=== PATIENT | female | born 1985 | race Caucasian/White ===

== ENCOUNTER → 2019-12-20 | Outpatient (CLI) | payer OTHER ==
[2019-12-20 12:58] LABS: HCG,Quantitative Serum <2.4 mIU/mL; T4, Free (Free Thyroxine) 1.23 ng/dL (0.78-2.19)
== END | disposition home or self-care (01) ==
LOC: LABWHC1 10:50
PROVIDERS: ATTEND Internal Medicine
DX: R53.83 Other fatigue (principal); R11.0 Nausea
CPT/HCPCS: 36415; 84439; 84443; 84702

== ENCOUNTER → 2020-01-23 | Outpatient (CLI) | payer OTHER ==
--- NOTE | 2020-01-23 11:02 | US ---
EXAMINATION TYPE: US abdomen complete DATE OF EXAM: 01/23/2020 COMPARISON: None CLINICAL HISTORY: 34-year-old female R10 Abdominal Pain. Intermittent nausea x couple months, mostly in the mornings, occasional vomiting, history of cholecystectomy. TECHNIQUE: Multiple sonographic images of the abdomen are obtained. FINDINGS: EXAM MEASUREMENTS: Liver Length: 14.5 cm Gallbladder: surgically absent CBD: 0.4 cm Spleen: 11.6 cm Right Kidney: 9.2 x 4.6 x 4.6 cm Left Kidney: 10.1 x 5.3 x 5.1 cm Pancreas: visualized pancreatic neck and body show no gross abnormal. Suboptimal visualization of th e pancreatic head and tail due to shadowing from bowel gas. Liver: wnl Gallbladder: surgically absent Evidence for sonographic Oconnor's sign: no CBD: visualized portions wnl, limited by overlying bowel gas Spleen: wnl Right Kidney: wnl Left Kidney: wnl Upper IVC: wnl Abd Aorta: wnl IMPRESSION: Status post cholecystectomy. No biliary ductal dilatation.
== END | disposition home or self-care (01) ==
LOC: RADUSWWP 10:18
PROVIDERS: ATTEND Internal Medicine
DX: R10.84 Generalized abdominal pain (principal); Z90.49 Acquired absence of other specified parts of digestive tract
CPT/HCPCS: 76700

== ENCOUNTER 2020-02-10 08:18 | Day surgery (SDC) | payer OTHER ==
[2020-02-08 12:13] VITALS: BMI 37.2
[~2020-02-10 08:18] MED LIST: LACTATED RINGERS 1,000 ML IV SCH
[2020-02-10 08:50] VITALS: RESP 16; TEMP 97
[2020-02-10] MEDS ORDERED: LIDOCAINE 1% (10MG/ML) FOR IV START INTRADERMA ONE (08:55)
[2020-02-10] MEDS ORDERED: ONDANSETRON 4 MG/2 ML VIAL IVP ONE (09:01)
[2020-02-10] MEDS ORDERED: PROPOFOL 10 MG/ML 20 ML VIAL IV ONE (09:43)
[2020-02-10] MEDS ORDERED: LIDOCAINE 1% INJ 10MG/ML (20 ML MDV) ONE (09:43)
--- NOTE | 2020-02-10 10:01 | P.PCN ---
Date of Procedure: 02/10/20 Procedure(s) Performed: BRIEF HISTORY: Patient is a 34 to-year-old, pleasant, white female scheduled for an upper endoscopy as a part of evaluation of epigastric pain and persistent nausea for the last few months duration.. PROCEDURE PERFORMED: Esophagogastroduodenoscopy. With biopsy PREOPERATIVE DIAGNOSIS: Epigastric pain/nausea. IV sedation per anesthesia. PROCEDURE: After informed consent was obtained, the patient was brought into the endoscopy unit. IV sedation was administered by Anesthesia under continuous monitoring. Initially the Olympus GIF-140 video endoscope was inserted into the mouth. Esophagus intubated without any difficulty. It was gradually advanced into the stomach and duodenum and carefully examined. The bulb and the second part of the duodenum appeared normal. Biopsies were done from the duodenum to rule out celiac disease. The scope at this time was withdrawn to the stomach, adequately insufflated with air, and upon careful examination, mucosa of the antrum, had scattered erosions and biopsies were done from this area. The body, cardia and the fundus appeared normal. The scope was then withdrawn into the esophagus. The GE junction was located at 39 cm from the incisors. There was a fissure erythema the GE junction with superficial erosions consistent with LA grade B reflux esophagitis. and the patient tolerated the procedure well. IMPRESSION: 1. Antral erosive gastritis. 2. LA grade B reflux esophagitis RECOMMENDATIONS: The findings of this examination were discussed with the patient as well as her family. She was advised to follow with the biopsy results. In the meantime continue with omeprazole 20 mg daily and follow antireflux measures.
[2020-02-10 10:22] VITALS: BP 128/78; PULSE 55
== END 2020-02-10 11:05 | disposition home or self-care (01) ==
LOC: ORWHC2ENDO 08:18
PROVIDERS: ATTEND Internal Medicine Gastroenterology
DX: K29.50 Unspecified chronic gastritis without bleeding (principal); K21.0 Gastro-esophageal reflux disease with esophagitis; K22.10 Ulcer of esophagus without bleeding; B96.81 Helicobacter pylori [H. pylori] as the cause of diseases classified elsewhere; E66.01 Morbid (severe) obesity due to excess calories; F41.9 Anxiety disorder, unspecified; F32.9 Major depressive disorder, single episode, unspecified; Z68.37 Body mass index [BMI] 37.0-37.9, adult; Z90.49 Acquired absence of other specified parts of digestive tract; Z90.89 Acquired absence of other organs; Z79.899 Other long term (current) drug therapy; Z87.891 Personal history of nicotine dependence
CPT/HCPCS: 81025; 43239; J2405; J2001; J2704; 88305; 88342

== ENCOUNTER 2020-11-12 10:32 | Emergency (ER) | payer OTHER ==
[2020-11-12 10:40] VITALS: BP 149/89; PULSE 72; RESP 20; TEMP 98.9
[2020-11-12] MEDS ORDERED: guaiFENesin-DM 600/30MG 1 EACH TAB.ER.12H PO STA (11:12)
--- NOTE | 2020-11-12 12:25 | XR ---
EXAMINATION TYPE: XR chest 1V DATE OF EXAM: 11/12/2020 COMPARISON: NONE HISTORY: Chest pain TECHNIQUE: Single frontal view of the chest is obtained. FINDINGS: Increased density right medial lung base may reflect developing infiltrate. The remainder of the lung s are clear. The cardiac silhouette size is within normal limits. The osseous structures are intact. IMPRESSION: 1. Increased density right medial lung base may reflect developing infiltrate. The remainder of the lungs are clear.
[2020-11-12] MEDS ORDERED: AZITHROMYCIN 500 MG TAB PO STA (12:45)
--- NOTE | 2020-11-12 12:53 | ED ---
URI HPI - General Chief Complaint: Upper Respiratory Infection Stated Complaint: Covid exposure, wants test Time Seen by Provider: 11/12/20 10:42 Source: patient Mode of arrival: ambulatory Limitations: no limitations - History of Present Illness Initial Comments: 35-year-old female patient presents to the emergency department today for evaluation of nasal congestion, cough, shortness of breath. She states symptoms started 2 days ago. States that her son was quarantined at home due to exposure at school but never developed symptoms. She states that today's of her stay with a cough. Denies any sputum production. Denies any chest pain. Denies any fever or chills. Does admit to smoking cigarettes. Patient denies any recent rash, abdominal pain, nausea, vomiting, diarrhea, constipation, back pain, numbness, tingling, dizziness, weakness, hematuria, dysuria, urinary urgency, urinary frequency, headache, visual changes, or any other complaints. Denies chance of , states tubal ligation in 2012. - Related Data Previous Rx's Medication Instructions Recorded Azithromycin [Zithromax Z-pack (6 0 mg PO DIRECTED #6 tab 11/12/20 tabs)] guaiFENesin-DM 600/30MG [Mucinex 2 each PO Q12HR PRN #20 tab.er.12h 11/12/20 Dm] Allergies Allergy/AdvReac Type Severity Reaction Status Date / Time No Known Allergies Allergy Verified 11/12/20 10:40 Review of Systems ROS Statement: Those systems with pertinent positive or pertinent negative responses have been documented in the HPI. ROS Other: All systems not noted in ROS Statement are negative. Past Medical History Past Medical History: No Reported History Additional Past Medical History / Comment(s): NAUSEA History of Any Multi-Drug Resistant Organisms: None Reported Past Surgical History: Adenoidectomy, Section, Cholecystectomy, Ear Surgery, Tonsillectomy, Tubal Ligation Additional Past Surgical History / Comment(s): tubes in bilat ears. C-SEC X 3 Past Anesthesia/Blood Transfusion Reactions: No Reported Reaction Past Psychological History: Anxiety, Depression Smoking Status: Never smoker Past Alcohol Use History: None Reported Past Drug Use History: Marijuana - Past Family History Mother Family Medical History: No Reported History General Exam Limitations: no limitations General appearance: alert, in no apparent distress, other (this is a well- developed, well-nourished adult female patient in no acute distress.) Eye exam: Present: normal appearance, PERRL, EOMI. Absent: scleral icterus, conjunctival injection, periorbital swelling ENT exam: Present: normal exam, normal oropharynx, mucous membranes moist Respiratory exam: Present: normal lung sounds bilaterally. Absent: respiratory distress, wheezes, rales, rhonchi, stridor Cardiovascular Exam: Present: regular rate, normal rhythm, normal heart sounds. Absent: systolic murmur, diastolic murmur, rubs, gallop, clicks GI/Abdominal exam: Present: soft, normal bowel sounds. Absent: distended, tenderness, guarding, rebound, rigid Neurological exam: Present: alert, oriented X3, CN II-XII intact Psychiatric exam: Present: normal affect, normal mood Skin exam: Present: warm, dry, intact, normal color. Absent: rash Course Vital Signs 11/12/20 10:38 Temperature 98.9 F Pulse Rate 72 Respiratory 20 Rate Blood Pressure 149/89 O2 Sat by Pulse 99 Oximetry Medical Decision Making - Medical Decision Making 35-year-old female patient presents to the emergency department today for evaluation of upper respiratory symptoms and cough. Physical examination did reveal clear equal lung sounds. Vital signs are unremarkable. She tested negative for COVID-19. Chest x-ray did show developing right middle lobe infiltrate. We'll start patient on azithromycin. She'll be given a prescription for Mucinex. I did discuss the possibility of a false negative on her COVID test and told her to take precautions. She'll be discharged to follow up with her primary care physician for recheck in 1-2 days. Return parameters were discussed in detail. She verbalizes understanding and agrees with this plan. Case discussed with my attending Dr. Harkins. - Lab Data Lab Results 11/12/20 Range/Units 11:03 Coronavirus (PCR) Not Detected (Not Detectd) - Radiology Data Radiology results: report reviewed, image reviewed One view x-ray of the chest is obtained. Report was reviewed in its entirety. Impression by Dr. Ureña shows increased density right medial lung base may reflect developing infiltrate. The remainder of the lungs are clear. Disposition Clinical Impression: Right middle lobe pneumonia Disposition: HOME SELF-CARE Condition: Good Instructions (If sedation given, give patient instructions): Upper Respiratory Infection (ED), Pneumonia (ED) Additional Instructions: Complete antibiotic prescription in full. Take medications as directed. Follow-up through primary care physician for recheck in 1-2 days. Return to the emergency department for any new, worsening, or concerning symptoms. Prescriptions: guaiFENesin-DM 600/30MG [Mucinex Dm] 2 each PO Q12HR PRN #20 tab.er.12h PRN Reason: Cough Azithromycin [Zithromax Z-pack (6 tabs)] 0 mg PO DIRECTED #6 tab Is patient prescribed a controlled substance at d/c from ED?: No Referrals: La Yarbrough MD [Primary Care Provider] - 1-2 days Time of Disposition: 12:53
== END 2020-11-12 13:07 | disposition home or self-care (01) ==
LOC: EC 10:32
DX: J18.1 Lobar pneumonia, unspecified organism (principal); E11.9 Type 2 diabetes mellitus without complications; Z20.822 Contact with and (suspected) exposure to COVID-19
CPT/HCPCS: 71045; 87635; 99283

== ENCOUNTER → 2022-05-22 | Outpatient (CLI) | payer OTHER | END | disposition home or self-care (01) | LOC: LABWHC1 10:26 | PROVIDERS: ATTEND Internal Medicine Interventional Cardiology | DX: Z00.01 Encounter for general adult medical examination with abnormal findings (principal) | CPT/HCPCS: 36415; 84443 ==

== ENCOUNTER 2023-08-28 19:41 | Emergency (ER) | payer OTHER ==
--- NOTE | 2023-08-28 21:10 | ED ---
General Adult HPI - General Source: patient, RN notes reviewed <Jodi Lan - Last Filed: 08/28/23 21:07> - History of Present Illness -: unknown Consistency: constant Improves with: none Worsens with: none Associated Symptoms: denies other symptoms <Dragan Scanlon - Last Filed: 08/29/23 05:43> <Dragan Thompson - Last Filed: 08/29/23 11:30> - General Stated complaint: Petitioned Time Seen by Provider: 08/28/23 21:07 - History of Present Illness Initial comments: 38 year old female presents to the emergency department for psychiatric evaluation. Patient states that she was in an argument with her roommate when she states that she said "I would rather be than deal with this." She states that because of this PD petitioned her to be evaluated. She denies feeling suicidal. She does have a history of depression. (Jodi Lan) This is a 38-year-old female presenting today with acute life stress resulting in suicidal statements. Patient's been petition by the police department for psychiatric evaluation. Patient has no drug or alcohol use today (Dragan Scanlon) - Related Data Previous Rx's Medication Instructions Recorded Azithromycin [Zithromax Z-pack (6 0 mg PO DIRECTED #6 tab 11/12/20 tabs)] guaiFENesin-DM 600/30MG [Mucinex 2 each PO Q12HR PRN #20 tab.er.12h 11/12/20 Dm] Allergies Allergy/AdvReac Type Severity Reaction Status Date / Time No Known Allergies Allergy Verified 08/28/23 21:45 Review of Systems ROS Other: All systems not noted in ROS Statement are negative. <Jodi Lan - Last Filed: 08/28/23 21:07> ROS Other: All systems not noted in ROS Statement are negative. <Dragan Scanlon - Last Filed: 08/29/23 05:43> ROS Other: All systems not noted in ROS Statement are negative. <Dragan Thompson - Last Filed: 08/29/23 11:30> ROS Statement: Those systems with pertinent positive or pertinent negative responses have been documented in the HPI. Past Medical History Past Medical History: No Reported History Additional Past Medical History / Comment(s): NAUSEA History of Any Multi-Drug Resistant Organisms: None Reported Past Surgical History: Adenoidectomy, Section, Cholecystectomy, Ear Surgery, Tonsillectomy, Tubal Ligation Additional Past Surgical History / Comment(s): tubes in bilat ears. C-SEC X 3 Past Anesthesia/Blood Transfusion Reactions: No Reported Reaction Past Psychological History: Anxiety, Depression Smoking Status: Never smoker Past Alcohol Use History: None Reported Past Drug Use History: Marijuana - Past Family History Mother Family Medical History: No Reported History <RikyJodi - Last Filed: 08/28/23 21:07> General Exam <JoseIvan osbornesey - Last Filed: 08/28/23 21:07> General appearance: alert, in no apparent distress Head exam: Present: atraumatic, normocephalic, normal inspection Eye exam: Present: normal appearance, PERRL, EOMI. Absent: scleral icterus, conjunctival injection, periorbital swelling ENT exam: Present: normal exam, mucous membranes moist Neck exam: Present: normal inspection. Absent: tenderness, meningismus, lymphadenopathy Respiratory exam: Present: normal lung sounds bilaterally. Absent: respiratory distress, wheezes, rales, rhonchi, stridor Cardiovascular Exam: Present: regular rate, normal rhythm, normal heart sounds. Absent: systolic murmur, diastolic murmur, rubs, gallop, clicks GI/Abdominal exam: Present: soft, normal bowel sounds. Absent: distended, tenderness, guarding, rebound, rigid Extremities exam: Present: normal inspection, full ROM, normal capillary refill. Absent: tenderness, pedal edema, joint swelling, calf tenderness Back exam: Present: normal inspection Neurological exam: Present: alert, oriented X3, CN II-XII intact Psychiatric exam: Present: normal affect, normal mood Skin exam: Present: warm, dry, intact, normal color. Absent: rash <Dragan Scanlon - Last Filed: 08/29/23 05:43> - General Exam Comments Initial Comments: Visual Physical Exam Vital signs reviewed General: Well-appearing, nontoxic, no acute distress. Head: Normocephalic, atraumatic Eyes: PERRLA, EOMI ENT: Airway patent Chest: Nonlabored breathing Skin: No visual rash, normal skin tone Neuro: Alert and oriented 3 Musculoskeletal: No gross abnormalities (Jodi Lan) Course <Dragan Scanlon - Last Filed: 08/29/23 05:43> Vital Signs 08/28/23 08/29/23 21:46 11:00 Temperature 98.2 F 98.0 F Pulse Rate 77 72 Respiratory 18 18 Rate Blood Pressure 145/78 142/80 O2 Sat by Pulse 99 97 Oximetry - Reevaluation(s) Reevaluation #1: 08/29/23 Medical record is reviewed Medically clear for psychiatric evaluation (Dragan Scanlon) Medical Decision Making <Jodi Lan - Last Filed: 08/28/23 21:07> <Dragan Thompson - Last Filed: 08/29/23 11:30> - Medical Decision Making Quick note preformed by Jodi Lan PA-C (Jodi Lan) Was patient admitted / discharged? Hospital course, mention meds given and route, prescriptions, significant lab abnormalities, going to OR and other pertinent info. @ -Patient was signed out to me by Dr. Scanlon at 7 AM Patient was evaluated by EPS EPS spoke with the psychiatrist and it was determined that the patient be discharged home safely. Patient was given a safety plan and discharged home. Undiagnosed new problem with uncertain prognosis? @ -No Drug Therapy requiring intensive monitoring for toxicity (Heparin, Nitro, Insulin, Cardizem)? @ -No Were any procedures done? @ -No Diagnosis/symptom? @ -Depression Acute, or Chronic, or Acute on Chronic? @ -Acute Uncomplicated (without systemic symptoms) or Complicated (systemic symptoms)? @ -Complicated Side effects of treatment? @ -No Exacerbation, Progression, or Severe Exacerbation? @ -No Poses a threat to life or bodily function? How? (Chest pain, [place], [place], pneumonia, PE, COPD, DKA, ARF, appy, cholecystitis, CVA, Diverticulitis, Homicidal, Suicidal, threat to staff... and all critical care pts) @ -No (Dragan Thompson) - Lab Data Lab Results 08/29/23 Range/Units 00:31 Urine Opiates Screen Not Detected (NotDetected) Ur Oxycodone Screen Not Detected (NotDetected) Urine Methadone Screen Not Detected (NotDetected) Ur Barbiturates Screen Not Detected (NotDetected) U Tricyclic Antidepress Not Detected (NotDetected) Ur Phencyclidine Scrn Not Detected (NotDetected) Ur Amphetamines Screen Not Detected (NotDetected) U Methamphetamines Scrn Not Detected (NotDetected) U Benzodiazepines Scrn Not Detected (NotDetected) Urine Cocaine Screen Not Detected (NotDetected) U Marijuana (THC) Screen Detected H (NotDetected) Disposition <Jodi Lan - Last Filed: 08/28/23 21:07> <Dragan Scanlon - Last Filed: 08/29/23 05:43> Is patient prescribed a controlled substance at d/c from ED?: No Time of Disposition: 11:30 <Dragan Thompson - Last Filed: 08/29/23 11:30> Clinical Impression: Situational depression Disposition: HOME SELF-CARE Instructions (If sedation given, give patient instructions): Depression (ED), Suicide Prevention (ED) Referrals: None,Stated [REFERRING] - 1-2 days
[2023-08-28 22:10] VITALS: RESP 18
[2023-08-29 01:09] LABS: Amphetamine Screen,Urine Not Detected (NotDetected); Barbiturate Screen,Urine Not Detected (NotDetected); Benzodiazepines Screen,Urine Not Detected (NotDetected); Cocaine Screen,Urine Not Detected (NotDetected); Methadone Screen, Urine Not Detected (NotDetected); Opiate Screen,Urine Not Detected (NotDetected); Oxycodone Screen, Urine Not Detected (NotDetected); Phencyclidine Screen,Urine Not Detected (NotDetected); Tricyclic Antidepressant,Urine Not Detected (NotDetected); Urn Cannabinoid Scrn Detected (NotDetected)
[2023-08-29 11:24] VITALS: BP 142/80; PULSE 72; TEMP 98
== END 2023-08-29 11:48 | disposition home or self-care (01) ==
LOC: EC 19:41
DX: F43.21 Adjustment disorder with depressed mood (principal); E11.9 Type 2 diabetes mellitus without complications; F12.90 Cannabis use, unspecified, uncomplicated; Z86.59 Personal history of other mental and behavioral disorders; Z90.49 Acquired absence of other specified parts of digestive tract
CPT/HCPCS: 80306; 82075; 99285